=== PATIENT | female | born 1985 | race Caucasian/White ===

== ENCOUNTER 2021-05-16 04:25 | Inpatient (IN) | payer BC ==
[2021-05-16] MEDS ORDERED: ELECTROLYTE-148 SOLN 1,000 ML IV SCH (06:45)
[2021-05-16] MEDS ORDERED: BUTORPHANOL TARTRATE 2 MG/ML VIAL IVPUSH ONE (07:48)
[2021-05-16] MEDS ORDERED: PROMETHAZINE HCL 25 MG/1 ML VIAL IVPUSH ONE (07:48)
[2021-05-16 07:53] LABS: BASO % 0.4 % (0-2.0); EOS % 0.2 % (0-4.5); HEMATOCRIT 36.7 % (32.4-45.2); HEMOGLOBIN 12.1 GM/dL (10.7-15.3); LYMPH % 17.9 % (8-40); MCH 27.7 pg (25.7-33.7); MCHC 33.1 g/dl (32.0-36.0); MEAN CELL VOLUME 83.7 fl (80-96); MEAN PLT VOLUME 9.1 fl (7.5-11.1); MONO % 5.6 % (3.8-10.2); NEUT % 75.9 % (42.8-82.8); PLATELET COUNT 262 10^3/uL (134-434); RBC 4.38 M/mm3 (3.60-5.2); RDW 14.2 % (11.6-15.6); WHITE BLOOD COUNT 10.7 K/mm3 (4.0-10.0)
[2021-05-16] MEDS ORDERED: BUTORPHANOL TARTRATE 2 MG/ML VIAL ONE (07:55)
[2021-05-16] MEDS ORDERED: PROMETHAZINE HCL 25 MG/1 ML VIAL ONE (07:56)
[2021-05-16 08:00] LABS: INR 0.87 (0.83-1.09); PROTHROMBIN TIME (PATIENT) 10.8 SEC (9.7-13.0)
[2021-05-16 08:03] LABS: ACTIVATED PTT 30.1 SECONDS (25.2-36.5)
[2021-05-16 08:07] VITALS: BMI 30.2
[2021-05-16] MEDS ORDERED: OXYTOCIN 20 UNITS in 0.9% NS 20 UNIT/1,000 ML INFUS.BAG IV ONE (08:07)
[2021-05-16] MEDS ORDERED: LIDOCAINE HCL 1% PRESERVATIVE FREE - 30ML VIAL ONE (08:07)
[2021-05-16 08:23] LABS: BLOOD UREA NITROGEN 9.3 mg/dL (7-18); CALCIUM 8.8 mg/dL (8.5-10.1)
[2021-05-16 08:27] LABS: CREATININE 0.5 mg/dL (0.55-1.3)
[2021-05-16] MEDS: OXYTOCIN 20 UNITS in 0.9% NS 20 UNIT/1,000 ML INFUS.BAG IV SCH ×2 (10:50→15:16)
[2021-05-16] MEDS ORDERED: BISACODYL 10 MG SUPP.RECT RC PRN (10:51)
[2021-05-16] MEDS ORDERED: METHYLERGONOVINE MALEATE 0.2 MG/1 ML AMP IM PRN (10:51)
[2021-05-16 11:05] LABS: HIV INTERPRETATION NEGATIVE (NEGATIVE)
[2021-05-16 11:21] LABS: CORD BASE EXCESS -7.3 mmol/L (0-2); CORD HCO3 21.8 mmHg (20-29); CORD PCO2 58.7 mmHg (30-78); CORD pH 7.188 (7.14-7.44)
[2021-05-16 11:24] LABS: CORD BASE EXCESS -7.7 mmol/L (0-2); CORD HCO3 19.2 mmHg (20-29); CORD PCO2 43.8 mmHg (30-78); CORD pH 7.26 (7.14-7.44)
[2021-05-16 13:01] LABS: POC NITRAZINE NEG
[2021-05-16] MEDS: BENZOCAINE 20% 57 GM BOTTLE TP PRN (13:13)
[2021-05-16] MEDS: WITCH HAZEL 50% (TUCKS) 40 PAD/JAR PAD TP PRN (13:13)
[2021-05-16] MEDS: BENZOCAINE 28 GM HEMORRHOIDAL OINTMENT TP PRN (13:14)
[2021-05-16] MEDS: IBUPROFEN 600 MG TABLET (FP) PO PRN (21:40)
[2021-05-16] MEDS: ACETAMINOPHEN 325 MG TABLET (FP) PO PRN (21:40)
[2021-05-17 07:30] LABS: BASO % 0.3 % (0-2.0); EOS % 0.4 % (0-4.5); HEMATOCRIT 31.2 % (32.4-45.2); HEMOGLOBIN 10.1 GM/dL (10.7-15.3); LYMPH % 26.8 % (8-40); MCH 27.3 pg (25.7-33.7); MCHC 32.3 g/dl (32.0-36.0); MEAN CELL VOLUME 84.5 fl (80-96); MEAN PLT VOLUME 9.2 fl (7.5-11.1); MONO % 8.2 % (3.8-10.2); NEUT % 64.3 % (42.8-82.8); PLATELET COUNT 231 10^3/uL (134-434); RBC 3.69 M/mm3 (3.60-5.2); RDW 14.5 % (11.6-15.6); WHITE BLOOD COUNT 10.8 K/mm3 (4.0-10.0)
[2021-05-17] MEDS ORDERED: SENNOSIDES/DOCUSATE COMBO (SENNA PLUS) TABLET (UD) PO PRN (22:00)
[2021-05-17] MEDS: IBUPROFEN 600 MG TABLET (FP) PO PRN (22:58)
[2021-05-17] MEDS: ACETAMINOPHEN 325 MG TABLET (FP) PO PRN (22:59)
[2021-05-17 23:32] VITALS: PULSE 75
[2021-05-18] MEDS: BENZOCAINE 28 GM HEMORRHOIDAL OINTMENT TP PRN (08:33)
[2021-05-18] MEDS: WITCH HAZEL 50% (TUCKS) 40 PAD/JAR PAD TP PRN (08:33)
[2021-05-18] MEDS: BENZOCAINE 20% 57 GM BOTTLE TP PRN (08:33)
[2021-05-18] MEDS: IBUPROFEN 600 MG TABLET (FP) PO PRN (08:34)
[2021-05-18] MEDS: ACETAMINOPHEN 325 MG TABLET (FP) PO PRN (08:35)
[2021-05-18 11:23] VITALS: BP 118/72; TEMP 98.8
== END 2021-05-18 12:15 | disposition home or self-care (01) | DRG 807 ==
LOC: JDEL 04:25 → JLDR 06:45 → J3W 12:55
PROVIDERS: ADMIT Obstetrics & Gynecology; ATTEND Obstetrics & Gynecology
PROC: 10E0XZZ Delivery of Products of Conception, External Approach (ICD-10-PCS; principal; 2021-05-16)
PROC: 0KQM0ZZ Repair Perineum Muscle, Open Approach (ICD-10-PCS; 2021-05-16)
PROC: 0W8NXZZ Division of Female Perineum, External Approach (ICD-10-PCS; 2021-05-16)
DX: O24.424 Gestational diabetes mellitus in childbirth, insulin controlled (principal); Z37.0 Single live birth; O70.1 Second degree perineal laceration during delivery; O99.214 Obesity complicating childbirth; E66.9 Obesity, unspecified; Z3A.38 38 weeks gestation of pregnancy
CPT/HCPCS: 36415; 36600; 59409; 80048; 82803; 82962; 83986-QW; 85025; 85610; 85730; 86780; 86850; 86900; 86901; 87389; C9803; U0003; U0005

== ENCOUNTER 2022-03-23 04:38 | Day surgery (SDC) | payer OTHER ==
[2022-03-18 11:51] VITALS: BMI 29.0
[2022-03-23] MEDS ORDERED: FENTANYL CITRATE/PF 50 MCG/ML VIAL ONE ×2 (10:35→10:36)
[2022-03-23] MEDS ORDERED: MIDAZOLAM HCL 2 MG/2 ML SINGLE DOSE VIAL ONE (10:35)
[2022-03-23] MEDS ORDERED: ceFAZolin SODIUM 1 GM VIAL IVPB ONE (11:35)
[2022-03-23] MEDS ORDERED: FENTANYL CITRATE/PF 50 MCG/ML VIAL IVPUSH PRN (11:51)
[2022-03-23] MEDS ORDERED: ONDANSETRON 4 MG/2 ML VIAL IVPUSH PRN (11:51)
[2022-03-23] MEDS ORDERED: oxyCODONE HCL 5 MG TABLET PO PRN (11:51)
[2022-03-23] MEDS ORDERED: LACTATED RINGERS SOLUTION 1,000 ML IV SCH (12:00)
[2022-03-23] MEDS ORDERED: BUPIVACAINE HCL/PF 0.5% (5 MG/ML) 30 ML VIAL IJ ONE ×2 (12:14)
[2022-03-23] MEDS ORDERED: PROPOFOL 20 ML ONE (12:16)
[2022-03-23] MEDS ORDERED: ROCURONIUM BROMIDE 50 MG/5 ML SYRINGE ONE (12:19)
[2022-03-23 14:06] VITALS: TEMP 97.6
[2022-03-23 16:23] VITALS: BP 120/70; PULSE 70
== END 2022-03-23 15:10 | disposition home or self-care (01) ==
LOC: JASU-SURG 04:38
PROVIDERS: ATTEND Obstetrics & Gynecology
PROC: 0UT74ZZ Resection of Bilateral Fallopian Tubes, Percutaneous Endoscopic Approach (ICD-10-PCS; principal; 2022-03-23 10:30)
DX: Z30.2 Encounter for sterilization (principal)
CPT/HCPCS: 88302-TC; 94760